=== PATIENT | female | born 1995 ===

== ENCOUNTER 2021-08-09 17:28 | Outpatient (REF) | payer MEDICAID, SELFPAY ==
[2021-08-09 19:56] LABS: ALT 30 U/L (14-59); AST 16 U/L (15-37); Albumin 4.3 g/dL (3.4-5.0); Alkaline Phosphatase 47 U/L (46-116); Anion Gap 8.7 mmol/L (3-11); BUN 11 mg/dL (7-18); Bilirubin, Total 0.4 mg/dL (0.2-1.0); CO2 28.3 mmol/L (21.0-32.0); CREATININE 0.7 mg/dL (0.55-1.02); Calcium 9.1 mg/dL (8.5-10.1); Chloride 103 mmol/L (98-107); Glucose 78 mg/dL (74-106); Potassium 3.8 mmol/L (3.5-5.1); Sodium 140 mmol/L (136-145); TSH 0.81 uIU/mL (0.36-3.74); Total Protein 7.3 g/dL (6.4-8.2)
== END 2021-08-09 17:29 | disposition home or self-care (01) ==
LOC: NCHCN 17:28
PROVIDERS: Visit Provider Nurse Practitioner Family
DX: R63.6 Underweight (principal); R00.2 Palpitations
CPT/HCPCS: 80053; 84443

== ENCOUNTER 2021-12-11 17:16 | Outpatient (REF) | payer MEDICAID, SELFPAY ==
--- NOTE | 2021-12-11 16:30 | PAPFT_PTH ---
PATIENT: Brianna Galo LOC: [facility] U#:[id number] AGE/SX: 26/F ROOM: RE12/11/[address]: Izzy De Souza : 1995 BED: DIS: 12/11/2021 SPEC #: [id number] RECD: 12/12/21 12:33 STATUS: SHADIA REQ #: [id number] FREDERICK: 12/11/21 16:[address]: Izzy De Souza DEPT: [facility] Cytology RECD BY: Leila Conroy ENTERED: 12/12/21 12:34 SP TYPE: PAPFT OT DR: Unknown,Unknown Tissues: 1 - CX/ENDOCX FOR PAP SMEARS Procedures: PAP THIN PREP/[facility] Screening HPV DNA PROBE Comments: [id number]
== END 2021-12-11 17:17 | disposition home or self-care (01) ==
LOC: NCHCN 17:16
PROVIDERS: Visit Provider Physician Assistant
DX: Z12.4 Encounter for screening for malignant neoplasm of cervix (principal); R87.610 Atypical squamous cells of undetermined significance on cytologic smear of cervix (ASC-US); Z11.51 Encounter for screening for human papillomavirus (HPV); Z87.42 Personal history of other diseases of the female genital tract; Z01.419 Encounter for gynecological examination (general) (routine) without abnormal findings
CPT/HCPCS: 88142; 87624

== ENCOUNTER 2023-06-26 19:25 | Outpatient (REF) | payer MEDICAID, SELFPAY ==
--- NOTE | 2023-06-26 14:50 | PAPFT_PTH ---
PATIENT: Brianna Galo LOC: [facility] U#:[id number] AGE/SX: 27/F ROOM: RE06/26/[address]: Izzy De Souza : 1995 BED: DIS: 06/26/2023 SPEC #: [id number] RECD: 06/27/23 13:00 STATUS: SHADIA REQ #: [id number] FREDERICK: 06/26/23 14:[address]: Izzy De Souza DEPT: [facility] Cytology RECD BY: Leila Conroy ENTERED: 06/27/23 13:00 SP TYPE: PAPFT OT DR: Unknown,Unknown Tissues: 1 - CX/ENDOCX FOR PAP SMEARS Procedures: PAP THIN PREP/[facility] Screening HPV DNA PROBE Comments: [id number]
== END 2023-06-26 19:26 | disposition home or self-care (01) ==
LOC: NCHCN 19:25
PROVIDERS: Visit Provider Physician Assistant
DX: Z87.42 Personal history of other diseases of the female genital tract (principal); Z12.4 Encounter for screening for malignant neoplasm of cervix
CPT/HCPCS: 88142; 87624

== ENCOUNTER 2023-11-18 14:42 | Outpatient (REF) | payer MEDICAID, SELFPAY ==
[2023-11-18 18:44] LABS: Abs Immature Grans 0.01 10^3/uL (0.0-0.06); Absolute Basophil Count 0.09 10^3/uL (0.0-0.2); Absolute Eosinophil Count 0.29 10^3/uL (0.0-0.7); Absolute Lymphocyte Count 3.03 10^3/uL (1.2-3.4); Absolute Monocyte Count 0.39 10^3/uL (0.1-0.8); Absolute Neutrophil Count 2.59 10^3/uL (1.2-6.7); Basophils % 1.4; Eosinophils % 4.5; HCT 42.3 % (36.0-46.0); HGB 14.1 g/dL (11.2-15.7); Immature Grans % 0.2; Lymphocytes % 47.3; MCH 30.7 pg (27.0-33.0); MCHC 33.3 % (32.0-36.0); MCV 92 fL (80-95); MPV 10.9 fL (8.0-11.0); Monocytes % 6.1; Neutrophils % 40.5; Platelet Count 320 10^3/uL (130-400); RDW 12.7 % (11.7-14.6); RDW-SD 42.8 fL
[2023-11-18 19:05] LABS: ALT 31 U/L (14-59); AST 23 U/L (15-37); Albumin 3.6 g/dL (3.4-5.0); Alkaline Phosphatase 40 U/L (46-116); Anion Gap 9.4 mmol/L (3-11); BUN 5 mg/dL (7-18); Bilirubin, Total 0.3 mg/dL (0.2-1.0); CO2 29.6 mmol/L (21.0-32.0); CREATININE 0.8 mg/dL (0.55-1.02); Calcium 8.6 mg/dL (8.5-10.1); Chloride 101 mmol/L (98-107); Glucose 90 mg/dL (74-106); Magnesium 1.9 mg/dL (1.8-2.4); Potassium 3.6 mmol/L (3.5-5.1); Sodium 140 mmol/L (136-145); TSH 0.97 uIU/Ml (0.36-3.74); Total Protein 7.3 g/dL (6.4-8.2)
== END 2023-11-18 14:43 | disposition home or self-care (01) ==
LOC: NCHCN 14:42
PROVIDERS: PCP Physician Assistant; Visit Provider Physician Assistant
DX: R55 Syncope and collapse (principal)
CPT/HCPCS: 80053; 83735; 84443; 85025